=== PATIENT | male | born 1995 | race Caucasian/White ===

== ENCOUNTER 2017-08-31 11:41 | Day surgery (SDC) | payer BC, OTHER ==
--- NOTE | 2017-08-25 14:50 | PAT Medication Instructions ---
Service Date Aug 25, 2017. Current Home Medication List Betamethasone Dip Augmented (Moisturel), 1 DOSE EX DAILY PRN for SKIN IRRITATION Ibuprofen (Ibuprofen), 400 MG PO Q6 Multivitamin (Multivitamin), 1 TAB PO QPM Medication Instructions For Your Scheduled Surgery -Contact your surgeon for instructions for: Ibuprofen (Ibuprofen), 400 MG PO Q6 - Hold the following medications 24 hours prior to surgery: Betamethasone Dip Augmented (Moisturel), 1 DOSE EX DAILY PRN for SKIN IRRITATION - Take the following medications as scheduled the night before surgery: Multivitamin (Multivitamin), 1 TAB PO QPM If you have any questions please call us at [phone] or [phone] or [phone]
[2017-08-25 15:49] LABS: BASO % 0.6 %; BASO ABS # 0.03 K/uL (0-0.2); EOS % 6.4 %; EOS ABS # 0.32 K/uL (0-0.5); HEMATOCRIT 40.1 % (42-52); HEMOGLOBIN 14.5 g/dL (14.0-18.0); LYMPH % 44.5 %; LYMPH ABS # 2.22 K/uL (1.2-3.4); MEAN CELL VOLUME 86.2 fL (80-100); MEAN CORPUSCULAR HEMOGLOBIN 31.2 pg (25-34); MEAN CORPUSCULAR HGB CONC 36.2 g/dl (32-36); MEAN PLATELET VOLUME 9.9 fL (7.4-10.4); MONO % 5.2 %; MONO ABS # 0.26 K/uL (0.11-0.59); NEUT % 43.3 %; NEUT ABS # 2.16 K/uL (1.4-6.5); PLATELET COUNT 249 K/uL (130-400); RED CELL DISTRIBUTION WIDTH CV 11.7 % (11.5-14.5); RED CELL DISTRIBUTION WIDTH SD 36.8 fL (36.4-46.3); WHITE BLOOD COUNT 4.99 K/uL (4.8-10.8)
[~2017-08-31] VITALS: Ht 185.4 cm; Wt 71.4 kg
[~2017-08-31 11:41] MED LIST: ATROPINE SULFATE 0.1 MG/ML 5ML SYR IV PRN; CLINDAMYCIN 600 MG/54 ML D5W IV ONE; CLINDAMYCIN 600 MG/54 ML D5W IV SCH; DEXAMETHASONE INJ 8 MG in SYRINGE 0 ML IV SCH; EpHEDrine SULFATE INJ 50 MG/ML AMP IV PRN; FENTANYL CITRATE INJ 50 MCG/1 ML 2 ML VIAL IV PRN; HYDROmorphone INJ 1 MG/ML SYR IV PRN; IBUP1CAP9 PO; LABETALOL HCL IV 5 MG/ML 20ML IV PRN; LACTATED RINGER'S 1000ML 1,000 ML IV SCH; MEPERIDINE HCL 25 MG/ML CARP IV PRN; MULT-506 PO; ONDANSETRON INJ 2 MG/ML 2 ML VIAL IV PRN; [UNRECOGNIZED DRUG - OTHER] EX
[2017-08-31 12:01] VITALS: BP 142/64; PULSE 82; TEMP 36.8; O2SAT 100; Ht 185.4 cm; Wt 71.4 kg
[2017-08-31] MEDS ORDERED: OXYMETAZOLINE HCL 0.05% NA SPR 15 ML BTL ONE (12:02)
[2017-08-31] MEDS ORDERED: ACETAMINOPHEN 1000 MG/100 ML IV IV ONE (12:14)
[2017-08-31] MEDS ORDERED: FENTANYL CITRATE INJ 50 MCG/1 ML 2 ML VIAL ONE ×2 (13:07→14:37)
[2017-08-31] MEDS ORDERED: MIDAZOLAM HCL 1 MG/ML 2ML VIAL ONE (13:07)
[2017-08-31] MEDS ORDERED: LIDOCAINE HCL 2% 2 ML VIAL (20MG/ML) ONE (13:07)
[2017-08-31] MEDS ORDERED: PROPOFOL IV EMULSION 10 MG/ML 20 ML VIAL IV ONE (13:07)
[2017-08-31] MEDS ORDERED: LIDOCAINE HCL 2% JELLY 30 ML TUBE EXT ONE (13:10)
[2017-08-31] MEDS ORDERED: TRIAMCINOLONE ACET 0.1% OINT 15 GM TUBE ONE (13:13)
[2017-08-31] MEDS ORDERED: BUPIVACAINE/EPINEPHRINE 0.5% 1:200,000 1.8 ML CARP ONE ×2 (13:13→13:25)
[2017-08-31] MEDS ORDERED: ROCURONIUM BROMIDE 10 MG/ML 5 ML VIAL IV ONE (13:27)
[2017-08-31] MEDS ORDERED: ONDANSETRON INJ 2 MG/ML 2 ML VIAL ONE (13:27)
[2017-08-31] MEDS ORDERED: DEXAMETHASONE SOD INJ 4 MG/ML VIAL ONE (13:27)
[2017-08-31] MEDS ORDERED: GLYCOPYRROLATE INJ 0.2 MG/ML VIAL ONE (13:27)
[2017-08-31] MEDS ORDERED: NEOSTIGMINE METHYLSULFATE 5 MG/5 ML SYR ONE (13:27)
--- NOTE | 2017-08-31 13:45 | History & Physical Bridge Note ---
H&P Re-Evaluation Bridge Note: I have examined the patient, reviewed the History & Physical and in the interval since the performance of the History & Physical I have noted the following changes of clinical significance: No changes noted
[2017-08-31] MEDS ORDERED: KETOROLAC TROMETHAMINE 30 MG/ML VIAL ONE (14:38)
[2017-08-31] MEDS ORDERED: LARYING-O-JET KIT (LTA) ONE (14:39)
--- NOTE | 2017-08-31 15:20 | [facility] Operative Report ---
Operative Report Operative Date Aug 31, 2017. Pre-Operative Diagnosis Skeletal Facial Deformity, maxillary hypoplasia Post-Operative Diagnosis same Procedure(s) Performed Le Forte I osteotomy (DILLON) Surgeon Dr. 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 Any exceptions are noted below. none
[2017-08-31] MEDS ORDERED: SODIUM CHLORIDE 0.65% NA SOLN 45 ML (OCEAN) PRN (15:30)
[2017-08-31] MEDS ORDERED: MoRPHine SULFATE 4 MG/ML 1 ML CARP\\VIAL IV PRN ×2 (15:30)
[2017-08-31] MEDS ORDERED: HYDROCODONE/APAP 2.5MG/108MG ELIX 5 ML UDP PO PRN (15:30)
[2017-08-31] MEDS ORDERED: ONDANSETRON INJ 2 MG/ML 2 ML VIAL IV PRN (15:30)
[2017-08-31] MEDS ORDERED: ACETAMINOPHEN SOLN 650MG/20.3 ML UDC PO PRN (15:30)
--- NOTE | 2017-08-31 15:30 | Discharge Instructions ---
Discharge Instructions Date of Service Aug 31, 2017. Admission Reason for Admission: Maxillary Hypoplasia Discharge Discharge Diagnosis / Problem: same Discharge Goals Goal(s): Improve function Activity Recommendations Activity Limitations: per Instructions/Follow-up section Lifting Limitations: no more than 25 pounds Exercise/Sports Limitations: until after follow-up appointment May Resume Sexual Activity: after follow-up appointment Shower/Bathe: no limitations Driving or Machine Use: no driving if taking prescription pain medications . Instructions / Follow-Up Instructions / Follow-Up 09-03-17 at 0945 follow up appointment Current Hospital Diet Patient's current hospital diet: Clear Liquid Diet Discharge Diet Recommended Diet: Full Liquid Diet Fluid Restriction: None Diet Texture: Mechanical Soft (ground) Procedures Procedures Performed: Le Forte I osteotomy (SARPE) Pending Studies Studies pending at discharge: no List of pending studies: none Work Instructions Return To Work: after follow-up Lifting Limitations: no more than 20 pounds School Instructions Return To School: after follow-up Medical Emergencies . Who to Call and When: Medical Emergencies: If at any time you feel your situation is an emergency, please call 911 immediately. . Non-Emergent Contact Non-Emergency issues call your: Surgeon Contact Number: [phone] Dr. Donald Call Non-Emergent contact if: you have a fever, your pain is not controlled, your pain is concerning you, you have any medication questions . "Provider Documentation" section prepared by Jared Donald. . VTE Core Measure Inpt VTE Proph given/why not?: SCD's [place] Drug Monitoring Program Search Results: patient reviewed within database, no issues identified
--- NOTE | 2017-08-31 16:01 | Anesthesiology Progress Note ---
Anesthesia Post Op Note Date & Time Aug 31, 2017 at 16:01 Vital Signs Pain Intensity: 0 Vital Signs Past 12 Hours Date Time Temp Pulse Resp B/P (MAP) Pulse Ox O2 Delivery O2 Flow Rate FiO2 08/31/17 15:55 66 20 119/53 97 Room Air 08/31/17 15:45 68 22 120/55 100 Oxymask 10 08/31/17 15:35 59 18 121/59 99 Oxymask 10 08/31/17 15:27 36.6 55 12 109/58 95 Oxymask 10 08/31/17 12:01 36.8 82 18 142/64 (90) 100 Room Air Notes Mental Status: alert / awake / arousable, participated in evaluation Pt Amnestic to Procedure: Yes Nausea / Vomiting: adequately controlled Pain: adequately controlled Airway Patency, RR, SpO2: stable & adequate BP & HR: stable & adequate Hydration State: stable & adequate Anesthetic Complications: no major complications apparent
[2017-08-31 16:15] VITALS: BP 127/58; PULSE 58; TEMP 36.8; O2SAT 99
[2017-08-31 16:45] VITALS: BP 109/56; PULSE 58; TEMP 36.8; O2SAT 99
[2017-08-31] MEDS ORDERED: KETOROLAC TROMETHAMINE 30 MG/ML VIAL IV. SCH (18:00)
--- NOTE | 2017-08-31 19:46 | OPERATIVE REPORT ---
DATE OF OPERATION: 08/31/2017 PREOPERATIVE DIAGNOSIS: Maxillary hypoplasia. POSTOPERATIVE DIAGNOSIS: Same. PROCEDURE: [place] I osteotomy in 2 segments for rapid palatal expansion. SURGEON: Dr. Jared Donald. LEGAL BILLING CLERK: Brittani Rose. ANESTHESIA: General. ESTIMATED BLOOD LOSS: 100 mL DRAINS: None. SPECIMENS: None. COMPLICATIONS: None. INDICATION: Reji is a 21-year-old I followed for a number of years with a developmental skeletal deformity that causes him functional problems, specifically mastication of his food. He has been followed and it has been determined that he has completed growth. He has had a comprehensive orthodontic evaluation and initiation of orthodontic therapy, and a surgical plan is to complete a surgically assisted rapid palatal expansion at the [place] I level and the early part of his orthodontic therapy and then reevaluate for additional orthognathic surgery toward the end of his orthodontic management. I have examined and reviewed the findings and the treatment options carefully with him and his mother. We have reviewed all the appropriate cephalometric films and completed the informed consent process. He has also had a routine pre-anesthesia evaluation and felt to be a good candidate for this surgery. PROCEDURE IN DETAIL: The patient was taken to the operating room and placed supine on the operating room table. Routine anesthesia monitors were applied. General anesthesia was induced and nasal endotracheal intubation was performed. The eyes were lubed and taped. The endotracheal tube was secured, and a sterile prep and drape was performed. I first entered the oral cavity and administered a total of 4 carpules of 0.5% Marcaine with 1:200,000 epinephrine to accomplish posterior superior alveolar nerve blocks and infraorbital nerve blocks bilaterally. We then irrigated the oral cavity with chlorhexidine and suctioned that free and placed a throat pack. We then created the typical upper buccal sulcus incision with a needle tip electrocautery and carried this dissection down to the level of the bone and exposed the maxilla in the subperiosteal plane from the pterygoid notch to the nasal piriform rim. I then created the typical [place] I osteotomy with the reciprocating saw, avoiding the roots of the maxillary teeth, and the pterygoid plates with a curved osteotome. I the cartilaginous nasal septum from the anterior nasal crest and used a guarded osteotome to start osteotomies in the lateral nasal loving. I then used the sagittal saw to carefully create a vertical midline incision from the anterior nasal spine down to the area of the midline of the maxillary alveolar ridge, taking care not to injure the roots of the maxillary central incisor teeth. A very fine straight osteotome was then used to complete that osteotomy in the mid palatal suture. I activated his expansion device 6 turns which would be 1.5 mm and found a corresponding even separation of the maxillary anterior teeth as appropriate for the opening of the mid palatal suture. I used a side cutting bur to relieve some bony interferences in the region of the maxillary buttresses, found good hemostasis, and irrigated the wounds thoroughly with sterile saline and then closed the incision with a cinch suture and then a running 4-0 chromic gut suture. The patient was turned over to anesthesia, extubated in the operating room and returned to the recovery area in stable condition. At the end of the procedure, all counts were correct. I attest to the content of the Intraoperative Record and any orders documented therein. Any exception s are noted below.
== END 2017-08-31 17:20 | disposition home or self-care (01) ==
LOC: C.ACU 11:41
PROVIDERS: ATTEND Dentist Oral and Maxillofacial Pathology
DX: M26.02 Maxillary hypoplasia (principal)

== ENCOUNTER 2019-02-28 08:44 | Observation (INO) ==
--- NOTE | 2019-02-08 10:07 | Anesthesiology Consultation ---
Date of Service February 08, 2019 Assessment & Plan (1) Encounter for pre-operative examination: Chart Review Chart Review: Acceptable Risk for Surgery (pending CBC (being done at [facility])) and Patient seen in Pre Admission Testing Teaching & Discussion Pre-Anesthesia Teaching/Discussion Notes: Instructed NPO after midnight before surgery,except medications with 15 cc of water. Medication instructions provided according to the PAT guidelines. History Surgery Operation Date: 02/28/19 07:30 Proposed Procedures p Bilateral Sagittal Split Osteotomy with Internal Fixation, Maxillary Osteotomy, - Jared Donald MD, DDS s Removal of Two Impacted [place] Teeth - Jared Donald MD, DDS Height/Weight Height: 6 ft 1 in Weight: 76.7 kg Allergies Allergy/AdvReac Type Severity Reaction Status Date / Time Penicillins Allergy Mild rash Verified 02/08/19 10:19 promethazine AdvReac Intermediate seizure-like Verified 02/08/19 10:19 activity gluten AdvReac Mild dyspepsia, Verified 02/08/19 10:04 bloating latex AdvReac Mild rash Verified 02/08/19 10:19 Medications Home Medications Medication Instructions Recorded Confirmed Last Taken No Known Home Medications 02/02/19 02/02/19 Unknown Past Medical History Medical History 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 Exercise / Class Metabolic Activity 1 > 8 Run/Swim/Ski/Tennis Past Family History Family History Other No significant family history Past Surgical History Surgical History History of mandibular surgery UPPER JAW SURGERY History of tonsillectomy and adenoidectomy History of tooth extraction Past Anesthesia History No Hx of Anesthesia Complications and No Family Hx of Anesthesia Complications History of PONV No Hx of PONV and No Hx of Motion Sickness Social History Smoking Status: Never smoker Do You Dip or Chew Tobacco: No Hx Alcohol Use: No Hx Substance Use: No substance use type: does not use Review of Systems Patient denies chest pain, shortness of breath, dyspnea on exertion, reflux, cough, wheezing, palpitations. Physical Exam Vital Signs VITALS BP 106/70 P 60 TEMP 97.5 SP02 100%RA RESP 12 PHYSICAL Full neck and c-spine range of motion. Full TMJ range of motion. TMD 3 finger breaths Mallampati Score 1 Dentition: intact Lungs: clear throughout to auscultation Cardiac: regular rate and rhythm, no murmurs noted Spine: normal Carotid arteries: negative bruit Extremities: no edema Testing Laboratory Results Blood Type A Positive 02/08/19 10:18 Antibody Screen NEGATIVE 02/08/19 10:18
[~2019-02-28 08:44] MED LIST changes: -ATROPINE SULFATE 0.1 MG/ML 5ML SYR IV PRN; +CLINDAMYCIN 600 MG/54 ML BAG IV SCH; -CLINDAMYCIN 600 MG/54 ML D5W IV ONE; -CLINDAMYCIN 600 MG/54 ML D5W IV SCH; -DEXAMETHASONE INJ 8 MG in SYRINGE 0 ML IV SCH; +DEXAMETHASONE SOD INJ 4 MG/ML VIAL IV SCH; +DEXAMETHASONE SOD INJ 4 MG/ML VIAL ONE; -EpHEDrine SULFATE INJ 50 MG/ML AMP IV PRN; -FENTANYL CITRATE INJ 50 MCG/1 ML 2 ML VIAL IV PRN; +GLYCOPYRROLATE 0.2 MG/ML VIAL ONE; -HYDROmorphone INJ 1 MG/ML SYR IV PRN; -IBUP1CAP9 PO; -LABETALOL HCL IV 5 MG/ML 20ML IV PRN; -LACTATED RINGER'S 1000ML 1,000 ML IV SCH; +LIDOCAINE HCL 2% 2 ML VIAL/AMP(20MG/ML) INFIL ONE; +LR 15ML/HR IV SCH; -MEPERIDINE HCL 25 MG/ML CARP IV PRN; +MIDAZOLAM HCL 1 MG/ML 2ML VIAL ONE; -MULT-506 PO; +NEOSTIGMINE METHYLSULFATE 5 MG/5 ML SYR ONE; -ONDANSETRON INJ 2 MG/ML 2 ML VIAL IV PRN; +ONDANSETRON INJ 2 MG/ML 2 ML VIAL ONE; +OXYMETAZOLINE 0.05% 30 ML BTL ONE; +PHENYLEPHRINE HCL 10 MG/ML VIAL ONE; +PROPOFOL IV EMULSION 10 MG/ML 20 ML VIAL IV ONE; +SUCCINYLCHOLINE CHLORIDE 20 MG/ML 10 ML VIAL ONE; -[UNRECOGNIZED DRUG - OTHER] EX; +ePHEDrine sulfate 50 MG/ML AMP ONE; +fentaNYL citrate 100 MCG/2 ML VIAL ONE
[2019-02-28] MEDS ORDERED: SCOPOLAMINE 1.5 MG TDSY ONE (09:32)
[2019-02-28] MEDS ORDERED: ATROPINE SULFATE 0.1 MG/ML 10ML SYR IV PRN (09:33)
[2019-02-28] MEDS ORDERED: ONDANSETRON INJ 2 MG/ML 2 ML VIAL IV PRN ×2 (09:33→13:16)
[2019-02-28] MEDS ORDERED: KETOROLAC 30 MG/ML VIAL IV PRN (09:33)
[2019-02-28] MEDS ORDERED: LABETALOL HCL IV 5 MG/ML 20ML IV PRN (09:33)
[2019-02-28] MEDS ORDERED: fentaNYL citrate 100 MCG/2 ML VIAL IV PRN (09:33)
[2019-02-28] MEDS ORDERED: SCOPOLAMINE 1.5 MG TDSY TD ONE (09:34)
--- NOTE | 2019-02-28 09:39 | History & Physical Bridge Note ---
Date of Service February 28, 2019 History & Physical Bridge Note I have examined the patient, reviewed the History & Physical and in the interval since the performance of the History & Physical I have noted the following changes of clinical significance: no changes noted.
[2019-02-28] MEDS ORDERED: TRIAMCINOLONE ACET 0.1% OINT 15 GM TUBE ONE (09:42)
[2019-02-28] MEDS ORDERED: CHLORHEXIDINE GLUCONATE 0.12% 480 ML ONE (09:42)
[2019-02-28] MEDS ORDERED: BUPIVACAINE/EPINEPHRINE 0.5% 1:200,000 1.8 ML CARP ONE ×2 (09:43→10:32)
[2019-02-28] MEDS ORDERED: HYDROmorphone INJ 2 MG/ML SYR/VIAL ONE (10:28)
[2019-02-28] MEDS ORDERED: KETOROLAC 30 MG/ML VIAL ONE (12:49)
--- NOTE | 2019-02-28 13:07 | Post Operative Brief Note ---
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
[2019-02-28] MEDS ORDERED: ACETAMINOPHEN/HYDROCODONE ELIX 15 ML/CUP UDP PO PRN ×2 (13:16)
[2019-02-28] MEDS ORDERED: MoRPHine SULFATE 2 MG/ML CARP IV PRN (13:16)
[2019-02-28] MEDS ORDERED: SODIUM CHLORIDE 0.65% NA SOLN 45 ML (OCEAN) PRN (13:16)
[2019-02-28] MEDS ORDERED: ACETAMINOPHEN SOL 650 MG/20.3 ML UDC PO PRN (13:16)
[2019-02-28] MEDS ORDERED: MoRPHine SULFATE 4 MG/ML 1 ML CARP\\VIAL IV PRN (13:16)
--- NOTE | 2019-02-28 13:39 | Operative Report ---
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 PROCEDURE: LeFort I maxillary osteotomy with rigid internal fixation, mandibular bilateral sagittal split ramus osteotomy with rigid internal fixation and removal of complete bony impacted wisdom teeth #17 and #32. SURGEON: Jared Donald DDS LABORER TREE TAPPING: Ms. Brittani Swann. ANESTHESIA: General. ESTIMATED BLOOD LOSS: 100 mL. DRAINS: None. SPECIMENS: None. COMPLICATIONS: None. INDICATIONS: Reji is a 23-year-old man I have known for a number of years. He has a very severe malocclusion as well as two lower impacted wisdom teeth. He had a first-stage surgery for surgically assisted rapid palatal expansion and then had a period of definitive orthodontic therapy and now after full cephalometric workup and presurgical planning with splint fabrication, he is ready for his definitive surgery. We have evaluated him skeletally and considered a single jaw surgery but his deformity is so great that a single jaw surgery would still leave him with a compromised facial form as well as airway and so after careful discussion with him and his parents, his treating instructor military science decided to treat him with bimaxillary osteotomies. The ideal time to remove his wisdom teeth would be during the sagittal split and we have reviewed that with him. He has undergone routine pre-anesthesia testing which was unremarkable and he has completed a surgical informed consent. DESCRIPTION OF PROCEDURE: The patient was taken to the operating room and placed supine on the operating room table. Routine anesthesia monitors were applied. General anesthesia was induced and nasal endotracheal intubation was performed. The eyes were lubed and taped. The endotracheal tube was secured and sterile prep and drape was performed. We took a time out. I used 0.5% Marcaine with 1:200,000 epinephrine for local anesthesia and then placed a throat pack and irrigated the oral cavity with chlorhexidine solution. We began with the mandible as we had planned and the typical left and then right lower buccal sulcus incision in the posterior buccal sulcus was created. Both mandibular rami were exposed per usual manner. The inferior alveolar nerves were protected with a lighted retractor and then the reciprocating saw was used to create the standard sagittal osteotomy first on the left side, then on the right hand side. With the osteotomies completed, we then completed the left osteotomy which was favorable and showed intact nerve. We removed the wisdom tooth from the osteotomy site by burring away bone around the tooth and carefully elevating it up and away from the nerve and the adjacent teeth. On the right hand side we also completed the osteotomy, which was favorable in its orientation. The nerve was intact on this side. The wisdom tooth was similarly exposed by using a round bur to trim bone away from it and carefully elevated and removed. The intermediate splint was then placed and the teeth were placed into intermaxillary fixation in the intermediate splint. The proximal segments were placed passively on to the repositioned distal segment and 3 bicortical screws on each side were placed through a transbuccal trocar to provide rigid internal fixation. I released his intermaxillary fixation and found the position of the mandible to be stable and in the anticipated intermediate occlusion. So we then turned our attention to the maxilla. The typical upper buccal sulcus incision was created with the needle tip electrocautery and the maxilla was widely exposed. The nasal mucosa was elevated away from the piriform rim and a LeFort I osteotomy was created with the reciprocating saw. I the pterygoid plates with a curved osteotome, the lateral nasal loving with a straight guarded osteotome, and the nasal septum with a straight osteotome and down fractured the maxilla with finger pressure. I freed up the posterior attachments and advanced the maxilla 4 mm at the incisor as we had planned and placed the patient into his final splint. Synthes hardware was used to create rigid internal fixation with four 1.5 mm plates to rigidly fixate the maxilla in its final position. I released this intermaxillary fixation and found his occlusion was stable and repeatable. We irrigated all the wounds and closed with a running 4-0 chromic gut suture in the mucosa and 6-0 nylon on the skin. The patient was left out of intermaxillary fixation. He was turned over to anesthesia, extubated in the operating room and transferred to the recovery area in stable condition. At the end of the procedure, all counts were correct. I attest to the content of the Intraoperative Record and any orders documented therein. Any exception s are noted below.
--- NOTE | 2019-02-28 14:31 | Anesthesiology Progress Note ---
Date of Service February 28, 2019 Anesthesia Post Procedure Vital Signs Vital Signs: Temp Pulse Pulse Resp BP BP Pulse Ox 02/28/19 14:30 53 L 12 121/72 94 02/28/19 14:20 61 13 111/81 97 02/28/19 14:10 36.7 C 60 15 121/72 95 02/28/19 14:00 57 L 12 124/68 95 02/28/19 13:50 63 12 134/70 99 02/28/19 13:40 77 19 134/64 100 02/28/19 13:33 36.8 C 75 21 134/62 99 02/28/19 09:28 36.6 C 75 16 134/74 100 Transfer of Care Handoff Completed per policy Notes Mental Status: alert / awake / arousable Patient Amnestic to Procedure: Yes Nausea / Vomiting: adequately controlled Pain: adequately controlled Airway Patency, RR, SpO2: stable & adequate BP & HR: stable & adequate Hydration State: stable & adequate Anesthetic Complications: no major complications apparent
[2019-02-28] MEDS: CHECK SCOPOLAMINE PATCH PLACEMENT SCH (17:16)
[2019-02-28] MEDS: KETOROLAC 30 MG/ML VIAL IV SCH ×2 (17:17→21:31)
[2019-02-28] MEDS: D5W AND 1/2NSS + 20MEQ KCL 20 MEQ/1,000 ML BAG IV SCH (17:18)
--- NOTE | 2019-02-28 17:25 | Progress Note ---
Date of Service February 28, 2019 Assessment & Plan (1) Mandibular hyperplasia: Pain and nausea control this evening Will work on PO intake Monitor overnight and anticipate D/C to home in the morning Physical Exam Physical Exam: Resting comfortably after surgery. AF VSS Awake and alert Sensation is already returning to the lower lip Occlusion looks good Incisions intact Minimal swelling No nasal bleeding Results & Data Vital Signs (Past 12 Hours) Vital Signs Temp Pulse Pulse Pulse Resp BP BP 02/28/19 16:48 36.6 C 54 L 17 122/70 02/28/19 16:21 36.5 C 56 L 17 122/69 02/28/19 15:40 36.5 C 53 L 14 115/65 02/28/19 15:15 63 13 123/75 02/28/19 15:00 53 L 13 120/65 02/28/19 14:45 55 L 12 112/75 02/28/19 14:30 53 L 12 121/72 02/28/19 14:20 61 13 111/81 02/28/19 14:10 36.7 C 60 15 121/72 02/28/19 14:00 57 L 12 124/68 02/28/19 13:50 63 12 134/70 02/28/19 13:40 77 19 134/64 02/28/19 13:33 36.8 C 75 21 134/62 02/28/19 09:28 36.6 C 75 16 134/74 Pulse Ox 02/28/19 16:48 99 02/28/19 16:21 96 02/28/19 15:40 98 02/28/19 15:15 98 02/28/19 15:00 95 02/28/19 14:45 96 02/28/19 14:30 94 02/28/19 14:20 97 02/28/19 14:10 95 02/28/19 14:00 95 02/28/19 13:50 99 02/28/19 13:40 100 02/28/19 13:33 99 02/28/19 09:28 100
[2019-03-01] MEDS: CHECK SCOPOLAMINE PATCH PLACEMENT SCH ×2 (00:39→08:49)
[2019-03-01] MEDS: D5W AND 1/2NSS + 20MEQ KCL 20 MEQ/1,000 ML BAG IV SCH (03:15)
[2019-03-01] MEDS: KETOROLAC 30 MG/ML VIAL IV SCH ×2 (04:38→10:02)
--- NOTE | 2019-03-01 08:45 | Discharge Summary ---
HOSPITAL COURSE: LeFort I osteotomy, bilateral mandibular sagittal split ramus osteotomy and removal of 2 mandibular impacted wisdom teeth. COMPLICATIONS: None. HISTORY AND PHYSICAL: Please refer to the patient's admission history and physical. In summary, he is a generally healthy 23-year-old man with a developmental deformity of his facial skeleton who is being brought to the OR for definitive correction of his mandibular prognathism as well as impacted wisdom teeth. POSTOP COURSE: Subsequent to the OR, the patient was recovered in the PACU and then transferred to the third floor for overnight observation, initially had some mild nausea, but this cleared without any problems. Pain control has been excellent. He has been able to take a liquid diet without any problems, been ambulating and voiding, is now felt to be stable for discharge to home. I have reviewed with him his discharge instructions and he will have close outpatient followup with me.
== END 2019-03-01 10:36 | disposition home or self-care (01) ==
LOC: ASU 08:44 → 3W 08:44